=== PATIENT | male | born 1970 | race Caucasian/White ===

== ENCOUNTER 2017-01-19 12:05 | Emergency (ER) | payer SELFPAY ==
[~2017-01-19] VITALS: Ht 167.6 cm; Wt 75.0 kg
[2017-01-19 12:07] VITALS: BP 175/101; PULSE 90; RESP 20; TEMP 99; O2SAT 98
--- NOTE | 2017-01-19 12:21 | PD ---
Physical Exam Time Seen by Provider: 12:20 Narrative Pt presents to the ED for evaluation of mid to lower back pain for 1.5 months. Denies hx of back pain. Denies injury. VSS. Awaiting bed placement. Data Data Last Documented VS Vital Signs Date Time Temp Pulse Resp B/P Pulse Ox O2 Delivery O2 Flow Rate FiO2 01/19/17 12:07 99.0 90 20 175/101 98 Room Air MDM Supervised Visit with [facility] DELIA: Mirna Toro Jan 19, 2017 12:21
[2017-01-19 13:31] VITALS: BP 155/96
[2017-01-19] MEDS ORDERED: ORPHENADRINE INJ 60 MG/2 ML AMP IV ONE (14:00)
[2017-01-19] MEDS ORDERED: KETOROLAC TROMETHAMINE 30 MG/ML (IVP) VIAL IV PUSH ONE (14:00)
[2017-01-19] MEDS ORDERED: DEXAMETHASONE SOD PHOS 20 MG/5 ML VIAL IV PUSH ONE (14:00)
--- NOTE | 2017-01-19 14:03 | PD ---
HPI Chief Complaint: Musculoskeletal Complaint Time Seen by Provider: 14:00 Travel History International Travel<30 days: No Contact w/Intl Traveler<30days: No Traveled to known affect area: No History of Present Illness HPI Patient is a 46-year-old male presenting to emergency department for evaluation of back pain. Patient states that ongoing for over a month, he denies any preceding injury or trauma. His gotten worse over the last 2 days he states the pain is in his lower back and radiates up. He denies any numbness or weakness in his lower extremities, no saddle paresthesia, no bladder or bowel incontinence, he states he does wake up in the morning and feels wet. Patient reports his pain is 8 out of 10, he describes aching and sore. He has been taking BC powder for the pain with no significant relief of symptoms. He denies any IV drug use, he denies any significant past medical history. PFS Past Medical History Medical History: Denies Significant Hx Past Surgical History Genitourinary Surgery: Yes (mallorywise tear repair ) Social History Alcohol Use: Yes Tobacco Use: Yes Substance Use: Yes (marijuana) Allergies-Medications (Allergen,Severity, Reaction): Coded Allergies: Tagamet (Verified Allergy, Unknown, rash, 01/19/17) Zantac (Verified Allergy, Unknown, rash, 01/19/17) Reported Meds & Prescriptions Reported Meds & Active Scripts Active Tramadol (Tramadol HCl) 50 Mg Tab 50 Mg PO Q6H PRN Review of Systems Except as stated in HPI: all other systems reviewed are Neg Musculoskeletal: Positive: Myalgias, Cramping, Pain Neurologic: No: Weakness, Focal Abnormalities, Paresthesia, Sensory Disturbance Physical Exam Narrative GENERAL: Well-developed, well-nourished, alert male. Appears uncomfortable, in no acute distress. SKIN: Focused skin assessment warm/dry. HEAD: Atraumatic. Normocephalic. EYES: Pupils equal and round. No scleral icterus. No injection or drainage. ENT: No nasal bleeding or discharge. Mucous membranes pink and moist. NECK: Trachea midline. No JVD. CARDIOVASCULAR: Regular rate and rhythm. No murmur appreciated. RESPIRATORY: No accessory muscle use. Clear to auscultation. Breath sounds equal bilaterally. GASTROINTESTINAL: Abdomen soft, non-tender, nondistended. Hepatic and splenic margins not palpable. MUSCULOSKELETAL: No obvious deformities. No clubbing. No cyanosis. No edema. Tenderness to palpation paraspinal musculature and lumbar and thoracic region. No spinal tenderness or step-off noted. NEUROLOGICAL: Awake and alert. No obvious cranial nerve deficits. Motor grossly within normal limits. Normal speech. PSYCHIATRIC: Appropriate mood and affect; insight and judgment normal. Data Data Last Documented VS Vital Signs Date Time Temp Pulse Resp B/P Pulse Ox O2 Delivery O2 Flow Rate FiO2 01/19/17 13:31 155/96 01/19/17 12:07 99.0 90 20 98 Room Air Orders Urinalysis - C+S If Indicated (01/19/17 13:55) Iv Access Insert/Monitor (01/19/17 13:55) Ketorolac Inj (Toradol Inj) (01/19/17 14:00) Orphenadrine Inj (Norflex Inj) (01/19/17 14:00) Dexamethasone Inj (Decadron Inj) (01/19/17 14:00) Labs Laboratory Tests Test 01/19/17 14:25 Urine Color YELLOW Urine Turbidity CLEAR Urine pH 5.5 Urine Specific [place] 1.019 Urine Protein TRACE mg/dL Urine Glucose (UA) NEG mg/dL Urine Ketones 10 mg/dL Urine Occult Blood NEG Urine Nitrite NEG Urine Bilirubin NEG Urine Urobilinogen LESS THAN 2.0 MG/DL Urine Leukocyte Esterase NEG Urine RBC LESS THAN 1 /hpf Urine WBC LESS THAN 1 /hpf Urine Squamous Epithelial <1 /hpf Cells Urine Mucus FEW /lpf Microscopic Urinalysis Comment CULT NOT INDICATED MDM Medical Decision Making Medical Screen Exam Complete: Yes Emergency Medical Condition: Yes Interpretation(s) Vital Signs Date Time Temp Pulse Resp B/P Pulse Ox O2 Delivery O2 Flow Rate FiO2 01/19/17 13:31 155/96 01/19/17 12:07 99.0 90 20 175/101 98 Room Air Differential Diagnosis Strain versus spasm versus discogenic pain versus kidney stone versus other Narrative Course Patient is a 46-year-old male presenting to emergency for evaluation of back pain. Pain is been ongoing for over a month, there was no preceding injury or trauma. There are no neurological deficits on exam. Physical examination appears most consistent with musculoskeletal strain. Patient does work as a painter and decorator. Since to attempt to alleviate pain emergency Department, urinalysis ordered to rule out hematuria for possible kidney stone. Urinalysis is unremarkable. Patient stated that pain was not improved after medication administration however he is seen sitting up on the bed which he was not able to do initially. Patient will be discharged home with medications. He was encouraged to take ibuprofen and Flexeril consistently for 24-48 hours and then as needed. He was advised not to drive or operate machinery while taking narcotic pain medication. He was given written information regarding the [facility]. He was encouraged to follow-up with primary care for ongoing health care maintenance. He was encouraged to return to emergency department for any new or worsening symptoms. Patient is stable for discharge. Diagnosis Primary Impression: Strain of lumbar paraspinal muscle Qualified Code: S39.012A - Strain of lumbar paraspinal muscle, initial encounter Additional Impression: Spasm of lumbar paraspinous muscle Referrals: [facility] Primary Care Physician Patient Instructions: General Instructions Additional Instructions: Follow-up with your primary doctor or at the [facility] Take medications as directed, do not drive or operate machinery while taking narcotic pain medication Apply warm moist heat to affected area, continue range of motion exercises, avoid exacerbating activities, avoid bed rest Return to emergency department for any new or worsening symptoms Med/Other Pt SpecificInfo: Prescription(s) given Scripts Cyclobenzaprine (Flexeril)10 Mg Tab10 Mg PO TID PRN (MUSCLE SPASM) 10 Days Ref 0 Prov:Polly Lamb 01/19/17 Ibuprofen 800 Mg Rub392 Mg PO Q6HR PRN (PAIN) #40 TAB Ref 0 Prov:Polly Lamb 01/19/17 Tramadol 50 Mg Tab50 Mg PO Q6H PRN (PAIN) #12 TAB Ref 0 Prov:Karen Martel MD 01/19/17 Disposition: 01 DISCHARGE HOME Condition: Stable Polly Lamb Jan 19, 2017 14:03
[2017-01-19 15:09] LABS: BLOOD, URINE NEG (NEG); COMMENT (UR) CULT NOT INDICATED; CULTURE IF INDICATED CULT NOT INDICATED; GLUCOSE,URINE NEG (NEG); KETONE, URINE 10 mg/dL (NEG); MUCUS URINE FEW /lpf (OCC); NITRITE,URINE NEG (NEG); PH, URINE 5.5 (5.0-8.5); SQUAMOUS EPITHELIAL CELL URINE <1 /hpf (0-5); URINE COLOR YELLOW (YELLW/STRAW)
[2017-01-19] MEDS ORDERED: TRAM50TA PO (15:25)
[2017-01-19] MEDS ORDERED: IBUP800T23 PO (15:27)
[2017-01-19] MEDS ORDERED: CYCL1TAB29 PO (15:27)
== END 2017-01-19 16:06 | disposition home or self-care (01) ==
LOC: NEPD 12:05
DX: S39.012A Strain of muscle, fascia and tendon of lower back, initial encounter (principal); Z72.0 Tobacco use; X58.XXXA Exposure to other specified factors, initial encounter; Y93.9 Activity, unspecified
CPT/HCPCS: 81001; 96374; 96375; 99284; J1100; J1885; J2360

== ENCOUNTER 2017-09-13 18:04 | Observation (INO) | payer SELFPAY ==
[~2017-09-13] VITALS: Ht 167.6 cm; Wt 68.0 kg
[~2017-09-13 18:04] MED LIST: CYCL10TA PO; IBUP1TAB7 PO; TRAM50TA PO
[2017-09-13 18:20] VITALS: BP 160/97; PULSE 108; RESP 16; TEMP 97.8; O2SAT 98
[2017-09-13] MEDS ORDERED: SODIUM CHLOR 0.9% 1000 ML INJ 1,000 ML IV SCH (18:37)
--- NOTE | 2017-09-13 18:41 | PD ---
HPI Chief Complaint: Chest Pain Time Seen by Provider: 18:37 Travel History International Travel<30 days: No Contact w/Intl Traveler<30days: No Traveled to known affect area: No History of Present Illness HPI 47-year-old male alcoholic presents for evaluation of abdominal pain, chest pain. He reports for the past 2 weeks he has had constant pain in his epigastrium/left upper quadrant as well as left-sided chest pain, left arm pain. Pain is sharp, constant, no aggravating or alleviating factors. He reports a history of chronic alcohol use, typically drinks 15 beers a day but today only drinks 6. He reports that prior to arrival he had a syncopal episode. He denies nausea, vomiting, shortness of breath, cough or congestion, diarrhea or constipation, flank pain, dysuria. He is a poor historian. He has no other complaints. [facility] Past Surgical History Genitourinary Surgery: Yes (mallorywise tear repair ) Social History Alcohol Use: Yes Tobacco Use: Yes Substance Use: Yes (marijuana) Allergies-Medications (Allergen,Severity, Reaction): Coded Allergies: cimetidine (Verified Allergy, Unknown, rash, 09/13/17) ranitidine (Verified Allergy, Unknown, rash, 09/13/17) Reported Meds & Prescriptions Reported Meds & Active Scripts Active No Active Prescriptions or Reported Medications Review of Systems ROS Limitations: Intoxication Except as stated in HPI: all other systems reviewed are Neg Physical Exam Narrative GENERAL: Disheveled male in no acute distress SKIN: Warm and dry. HEAD: Atraumatic. Normocephalic. EYES: Pupils equal and round. No scleral icterus. No injection or drainage. ENT: No nasal bleeding or discharge. Mucous membranes pink and moist. NECK: Trachea midline. No JVD. CARDIOVASCULAR: Regular rate and rhythm. No murmur appreciated. RESPIRATORY: No accessory muscle use. Clear to auscultation. Breath sounds equal bilaterally. GASTROINTESTINAL: Abdomen soft, tender to palpation in the epigastrium and left upper quadrant without guarding. MUSCULOSKELETAL: No obvious deformities. No clubbing. No cyanosis. No edema. NEUROLOGICAL: Awake and alert. No obvious cranial nerve deficits. Motor grossly within normal limits. Mildly slurred speech. PSYCHIATRIC: Appropriate mood and affect; insight and judgment normal. Data Data Last Documented VS Vital Signs Date Time Temp Pulse Resp B/P (MAP) Pulse Ox O2 Delivery O2 Flow Rate FiO2 09/13/17 19:25 93 16 95 Room Air 09/13/17 19:24 147/87 (107) 09/13/17 18:20 97.8 Orders Orders Electrocardiogram (09/13/17 18:37) Ckmb (Isoenzyme) Profile (09/13/17 18:37) Complete Blood Count With Diff (09/13/17 18:37) Magnesium (Mg) (09/13/17 18:37) Prothrombin Time / Inr (Pt) (09/13/17 18:37) Act Partial Throm Time (Ptt) (09/13/17 18:37) Troponin I (09/13/17 18:37) Ecg Monitoring (09/13/17 18:37) Bilateral Bp Monitoring (09/13/17 18:37) Iv Access Insert/Monitor (09/13/17 18:37) Oximetry (09/13/17 18:37) Oxygen Administration (09/13/17 18:37) Sodium Chloride 0.9% Flush (Ns Flush) (09/13/17 18:45) Comprehensive Metabolic Panel (09/13/17 18:37) Lipase (09/13/17 18:37) Urinalysis - C+S If Indicated (09/13/17 18:37) Ct Abd/Pel W Iv Contrast(Rout) (09/13/17 18:37) Ondansetron Inj (Zofran Inj) (09/13/17 18:45) Pantoprazole Inj (Protonix Inj) (09/13/17 18:45) Sodium Chlor 0.9% 1000 Ml Inj (Ns 1000 M (09/13/17 18:37) Al-Mag Hy-Si 40-40-4 Mg/Ml Liq (Mag-Al P (09/13/17 18:45) Lidocaine 2% Viscous (Xylocaine 2% Visco (09/13/17 18:45) Alcohol (Ethanol) (09/13/17 18:38) Chest, Single Ap (09/13/17 18:37) CKMB (09/13/17 18:50) CKMB% (09/13/17 18:50) Iohexol 350 Inj (Omnipaque 350 Inj) (09/13/17 20:10) Aspirin Chew (Aspirin Chew) (09/13/17 21:00) Nitroglycerin Sl (Nitrostat Sl) (09/13/17 21:00) Labs Laboratory Tests Test 09/13/17 18:50 09/13/17 18:52 White Blood Count 6.3 TH/MM3 Red Blood Count 4.95 MIL/MM3 Hemoglobin 15.3 GM/DL Hematocrit 45.3 % Mean Corpuscular Volume 91.6 FL Mean Corpuscular Hemoglobin 30.9 PG Mean Corpuscular Hemoglobin Concent 33.7 % Red Cell Distribution Width 12.7 % Platelet Count 212 TH/MM3 Mean Platelet Volume 7.7 FL Neutrophils (%) (Auto) 54.3 % Lymphocytes (%) (Auto) 36.2 % Monocytes (%) (Auto) 7.7 % Eosinophils (%) (Auto) 0.9 % Basophils (%) (Auto) 0.9 % Neutrophils # (Auto) 3.4 TH/MM3 Lymphocytes # (Auto) 2.3 TH/MM3 Monocytes # (Auto) 0.5 TH/MM3 Eosinophils # (Auto) 0.1 TH/MM3 Basophils # (Auto) 0.1 TH/MM3 CBC Comment DIFF FINAL Differential Comment Prothrombin Time 9.9 SEC Prothromb Time International Ratio 1.0 RATIO Activated Partial Thromboplast Time 25.9 SEC Blood Urea Nitrogen 4 MG/DL Creatinine 0.75 MG/DL Random Glucose 88 MG/DL Total Protein 8.2 GM/DL Albumin 3.8 GM/DL Calcium Level 8.6 MG/DL Magnesium Level 2.0 MG/DL Alkaline Phosphatase 62 U/L Aspartate Amino Transf (AST/SGOT) 78 U/L Alanine Aminotransferase (ALT/SGPT) 62 U/L Total Bilirubin 0.3 MG/DL Sodium Level 136 MEQ/L Potassium Level 3.6 MEQ/L Chloride Level 98 MEQ/L Carbon Dioxide Level 28.1 MEQ/L Anion Gap 10 MEQ/L Estimat Glomerular Filtration Rate 111 ML/MIN Total Creatine Kinase 105 U/L Creatine Kinase MB 1.2 NG/ML Troponin I LESS THAN 0.02 NG/ML Lipase 124 U/L Ethyl Alcohol Level 346 MG/DL Urine Color LIGHT-YELLOW Urine Turbidity CLEAR Urine pH 5.5 Urine Specific [place] 1.002 Urine Protein NEG mg/dL Urine Glucose (UA) NEG mg/dL Urine Ketones NEG mg/dL Urine Occult Blood NEG Urine Nitrite NEG Urine Bilirubin NEG Urine Urobilinogen LESS THAN 2.0 MG/DL Urine Leukocyte Esterase NEG Urine RBC LESS THAN 1 /hpf Microscopic Urinalysis Comment CULT NOT INDICATED MDM Medical Decision Making Medical Screen Exam Complete: Yes Emergency Medical Condition: Yes Medical Record Reviewed: Yes Differential Diagnosis Gastritis, pancreatitis, AAA, alcohol intoxication, hyponatremia, acute coronary syndrome, pneumothorax, pericarditis, myocarditis Narrative Course The patient was placed on ecg monitoring and pulse oximetry. A 12-lead EKG was obtained. Chest x-ray, CT abdomen and pelvis were obtained. The patient was given GI cocktail and Protonix with minimal relief in his symptoms. Aspirin and nitroglycerin ordered. CBC is unremarkable. CMP is unremarkable. Cardiac enzymes are negative. Alcohol level is quite elevated at 346. CT abdomen and pelvis reveals no acute abnormalities. Chest x-ray is normal. Etiology of this pain is unknown, could be related to alcohol-induced gastritis. Syncopal event may be related to his alcohol abuse. At this point in time the plan would be to admit the patient overnight for observation. Diagnosis Primary Impression: Alcohol abuse Additional Impressions: Syncope Atypical chest pain Abdominal pain Admitting Information Admitting Physician Requests: Observation Scripts No Active Prescriptions or Reported Meds Frankie Marte Sep 13, 2017 18:41
[2017-09-13] MEDS ORDERED: LIDOCAINE VISCOUS 2% SOLN 15 ML UDC PO ONE (18:45)
[2017-09-13] MEDS ORDERED: ONDANSETRON HCL 4 MG/2 ML VIAL IVP ONE (18:45)
[2017-09-13] MEDS ORDERED: SODIUM CHLORIDE 0.9% FLUSH 10 ML FLUSH IVF PRN (18:45)
[2017-09-13] MEDS ORDERED: PANTOPRAZOLE SODIUM 40 MG VIAL IVP ONE (18:45)
[2017-09-13] MEDS ORDERED: ALUMINUM/MAGNESIUM/SIMETH 30 ML CUP PO ONE (18:45)
[2017-09-13 18:53] VITALS: BP_SYST 147; BP_SYST 168; BP_DIAS 86; BP_DIAS 87; PULSE 94; RESP 17; O2SAT 97
[2017-09-13 18:56] VITALS: RESP 17; O2SAT 97
[2017-09-13 19:12] LABS: AUTOMATED NEUTROPHIL # 3.4 TH/MM3 (1.8-7.7); BASOPHIL # 0.1 TH/MM3 (0-0.2); BASOPHIL % 0.9 % (0.0-2.0); EOSINOPHIL # 0.1 TH/MM3 (0-0.4); EOSINOPHIL % 0.9 % (0.0-4.0); HEMATOCRIT 45.3 % (39.0-51.0); HEMOGLOBIN 15.3 GM/DL (13.0-17.0); LYMPH % 36.2 % (9.0-44.0); LYMPHOCYTE # 2.3 TH/MM3 (1.0-4.8); MEAN CELL VOLUME 91.6 FL (80.0-100.0); MEAN CORPUSCULAR HEMOGLOBIN 30.9 PG (27.0-34.0); MEAN CORPUSCULAR HGB CONC 33.7 % (32.0-36.0); MEAN PLATELET VOLUME 7.7 FL (7.0-11.0); MONO % 7.7 % (0.0-8.0); MONOCYTE # 0.5 TH/MM3 (0-0.9); NEUT % 54.3 % (16.0-70.0); PLATELET COUNT 212 TH/MM3 (150-450); RED BLOOD COUNT 4.95 MIL/MM3 (4.50-5.90); RED CELL DISTRIBUTION WIDTH 12.7 % (11.6-17.2); WHITE BLOOD COUNT 6.3 TH/MM3 (4.0-11.0)
[2017-09-13 19:12] LABS: BILIRUBIN, URINE NEG (NEG); BLOOD, URINE NEG (NEG); GLUCOSE,URINE NEG (NEG); KETONE, URINE NEG (NEG); NITRITE,URINE NEG (NEG); PH, URINE 5.5 (5.0-8.5); URINE COLOR LIGHT-YELLOW (YELLW/STRAW); URINE LEUKOCYTE ESTERASE NEG (NEG)
[2017-09-13 19:22] LABS: PROTHROMBIN TIME - PATIENT 9.9 SEC (9.8-11.6)
[2017-09-13 19:24] VITALS: BP 147/87; PULSE 93; RESP 17; O2SAT 95
[2017-09-13 19:26] LABS: ALBUMIN 3.8 GM/DL (3.4-5.0); AST (GOT) 78 U/L (15-37); BICARBONATE 28.1 MEQ/L (21.0-32.0); BLOOD UREA NITROGEN 4 MG/DL (7-18); CALCIUM 8.6 MG/DL (8.5-10.1); CHLORIDE 98 MEQ/L (98-107); CREATININE 0.75 MG/DL (0.60-1.30); GLOMERULAR FILTRATION RATE 111 ML/MIN (>89); GLUCOSE,RANDOM 88 MG/DL (74-106); SODIUM (NA) 136 MEQ/L (136-145)
[2017-09-13 19:27] LABS: ALT (GPT) 62 U/L (12-78)
--- NOTE | 2017-09-13 19:27 | RADRPT ---
EXAM DATE/TIME: 09/13/2017 19:03 [facility] COMPARISON: No previous studies available for comparison. INDICATIONS : Left sided chest pain. MEDICAL HISTORY : None. SURGICAL HISTORY : ENCOUNTER: Initial ACUITY: 2 days PAIN SCORE: 10/10 LOCATION: Left lower chest FINDINGS: A single view of the chest demonstrates the lungs to be symmetrically aerated without evidence of mas s, infiltrate or effusion. The cardiomediastinal contours are unremarkable. Osseous structures are intact. CONCLUSION: 1. No acute cardiopulmonary disease. Antoine Ramirez MD on September 13, 2017 at 19:26 Board Certified Radiologist. This report was verified electronically.
[2017-09-13 19:31] LABS: ALKALINE PHOSPHATASE 62 U/L (45-117); TOTAL BILIRUBIN ADULT 0.3 MG/DL (0.2-1.0); TOTAL PROTEIN 8.2 GM/DL (6.4-8.2); TROPONIN I LESS THAN 0.02 NG/ML (0.02-0.05)
[2017-09-13] MEDS ORDERED: IOHEXOL 350 MG/ML 10 ML VIAL (for RAD DIAG) IVCONTRAST ONE (20:10)
--- NOTE | 2017-09-13 20:50 | RADRPT ---
EXAM DATE/TIME: 09/13/2017 20:00 [facility] COMPARISON: No previous studies available for comparison. INDICATIONS : Left abdominal pain. IV CONTRAST: 100 cc Omnipaque 350 (iohexol) IV ORAL CONTRAST: No oral contrast ingested. RADIATION DOSE: 13.15 CTDIvol (mGy) MEDICAL HISTORY : None SURGICAL HISTORY : None. ENCOUNTER: Initial ACUITY: 1 day PAIN SCALE: 5/10 LOCATION: Left abdomen TECHNIQUE: Volumetric scanning of the abdomen and pelvis was performed. Using automated exposure control and ad justment of the mA and/or kV according to patient size, radiation dose was kept as low as reasonably achievable to obtain optimal diagnostic quality images. DICOM format image data is available electro nically for review and comparison. FINDINGS: Examination of the lung bases demonstrates no abnormality. No pleural fluid is identified. No pulmona ry nodules are present. There is decreased density of the liver with respect to the spleen compatible with fatty infiltration. The spleen is unremarkable. The gallbladder and pancreas are unremarkable. No intrahepatic or extrahepatic ductal dilatation is seen. The adrenal glands and kidneys appear norm al bilaterally. No hydronephrosis or mass lesions are identified. Examination of the pelvis demonstrates no evidence of free fluid or pelvic mass. No abnormally enlarg ed inguinal or retroperitoneal lymph nodes are present. The bladder is unremarkable. CONCLUSION: 1. No evidence of acute abdominal or pelvic process. No masses are identified. 2. Hypodense liver compatible with fatty infiltration or hepatocellular disease. Antoine Ramirez MD on September 13, 2017 at 20:47 Board Certified Radiologist. This report was verified electronically.
[2017-09-13] MEDS ORDERED: NITROGLYCERIN 0.4 MG SL 25 TABS/BTL SL ONE (21:00)
[2017-09-13] MEDS ORDERED: ASPIRIN 81 MG CHEW TAB PO ONE (21:00)
[2017-09-13] MEDS ORDERED: LORazepam 2 MG TAB PO PRN (21:15)
[2017-09-13] MEDS ORDERED: FLUMAZENIL 0.5 MG/5 ML VIAL IV PUSH PRN (21:15)
[2017-09-13] MEDS ORDERED: MAGNESIUM HYDROXIDE SUSP 30 ML CUP PO PRN (21:15)
[2017-09-13] MEDS ORDERED: NALOXONE HCL 0.4 MG/ML AMP IV PUSH PRN (21:15)
[2017-09-13] MEDS ORDERED: LORazepam 2 MG/ML VIAL IV PUSH PRN ×4 (21:15)
[2017-09-13] MEDS ORDERED: LACTULOSE SYRUP 20 GM/30 ML CUP PO PRN (21:15)
[2017-09-13] MEDS ORDERED: BISACODYL 10 MG SUPP RECTAL PRN (21:15)
[2017-09-13] MEDS ORDERED: LORazepam 1 MG TAB PO PRN (21:15)
[2017-09-13] MEDS ORDERED: SODIUM CHLORIDE 0.9% FLUSH 10 ML FLUSH IV FLUSH PRN (21:15)
[2017-09-13] MEDS ORDERED: ACETAMINOPHEN 325 MG TAB PO PRN (21:15)
[2017-09-13] MEDS ORDERED: ONDANSETRON HCL 4 MG/2 ML VIAL IVP PRN (21:15)
[2017-09-13] MEDS ORDERED: SENNOSIDES 8.6 MG TAB PO PRN (21:15)
[2017-09-13] MEDS: FAMOTIDINE 20 MG TAB PO SCH (21:58)
[2017-09-13 23:27] VITALS: BP 138/104; PULSE 98; RESP 18; TEMP 98.7; O2SAT 96
--- NOTE | 2017-09-13 23:34 | HHI.HP ---
[facility] No Primary Care Physician Admission Diagnosis Alcohol intoxication, syncope, atypical chest pain, abdominal pain Diagnoses: (1) Abdominal pain (2) Atypical chest pain (3) Alcohol abuse Chief Complaint: Left upper quadrant abdominal pain Travel History International Travel<30 Days: No Contact w/Intl Traveler <30 Da: No Traveled to Known Affected Are: No History of Present Illness This is a 47-year-old male patient with a known medical history of alcoholism who presented to the ED with complaints of abdominal pain. Patient states that he has had abdominal pain for the past 2 weeks located in his left upper quadrant and radiates to his left lateral chest area. Patient characterizes the pain as sharp and stabbing in nature, rated a 6 out of 10 on pain scale, is intermittent in nature and worsens with activity. Patient denies any alleviating factors. Patient also states that he did have a near syncopal episode at home, states that his roommate found him passed out in the living room. He does admit to drinking roughly 15 beers a day, but states he was trying to cut down for the past couple weeks and only drink 6 beers today. Patient states she is afraid to quit cold turkey due to being afraid of withdrawals. He does admit that he had a recent upper respiratory infection with associated cough, took [id number] medications and states relief. He denies any recent fevers, chills, nausea, vomiting, diarrhea or dysuria. Review of Systems Constitutional: DENIES: Fatigue, Fever, Chills Eyes: DENIES: Blurred vision, Diplopia Respiratory: DENIES: Cough, Sputum production, Shortness of breath Cardiovascular: DENIES: Chest pain Gastrointestinal: COMPLAINS OF: Abdominal pain, DENIES: Black stools, Bloody stools, Constipation, Diarrhea Neurologic: DENIES: Abnormal gait Psychiatric: DENIES: Anxiety Except as stated in HPI: all other systems reviewed are Neg Past Family Social History Past Medical History Alcohol abuse Past Surgical History Barbara-Barron tear repair Reported Medications Active No Active Prescriptions or Reported Medications Allergies: Coded Allergies: cimetidine (Verified Allergy, Unknown, rash, 09/13/17) ranitidine (Verified Allergy, Unknown, rash, 09/13/17) Active Ordered Medications Current Medications Medications (Trade) Dose Ordered Sig/Selena Route Start Time Stop Time Status Last Admin (NS Flush) 2 ml UNSCH PRN IVF 09/13/17 18:45 09/13/17 18:57 (NS Flush) 2 ml UNSCH PRN IV FLUSH 09/13/17 21:15 (NS Flush) 2 ml BID IV FLUSH 09/14/17 09:00 (Tylenol) 650 mg Q4H PRN PO 09/13/17 21:15 09/13/17 23:23 (Zofran Inj) 4 mg Q6H PRN IVP 09/13/17 21:15 (Narcan Inj) 0.4 mg UNSCH PRN IV PUSH 09/13/17 21:15 (Milk Of Magnesia Liq) 30 ml Q12H PRN PO 09/13/17 21:15 (Senokot) 17.2 mg Q12H PRN PO 09/13/17 21:15 (Dulcolax Supp) 10 mg DAILY PRN RECTAL 09/13/17 21:15 (Lactulose Liq) 30 ml DAILY PRN PO 09/13/17 21:15 (Romazicon Inj) 0.2 mg Q1M PRN IV PUSH 09/13/17 21:15 (Ativan) 1 mg Q4H PRN PO 09/13/17 21:15 (Ativan Inj) 1 mg Q4H PRN IV PUSH 09/13/17 21:15 (Ativan) 2 mg Q2H PRN PO 09/13/17 21:15 (Ativan Inj) 2 mg Q2H PRN IV PUSH 09/13/17 21:15 (Ativan Inj) 2 mg Q1H PRN IV PUSH 09/13/17 21:15 (Ativan Inj) 2 mg Q15M PRN IV PUSH 09/13/17 21:15 (Pepcid) 20 mg BID PO 09/13/17 21:30 Family History Denies any family medical history cardiovascular disease, stroke ordered diabetes. Social History Admits to drinking up to 15 beers daily. Denies any tobacco use. Does admit to frequent marijuana use. Physical Exam Vital Signs Vital Signs Date Time Temp Pulse Resp B/P (MAP) Pulse Ox O2 Delivery O2 Flow Rate FiO2 09/13/17 23:27 98.7 98 18 138/104 (115) 96 09/13/17 22:53 09/13/17 19:25 93 16 95 Room Air 09/13/17 19:24 93 17 147/87 (107) 95 Room Air 09/13/17 18:56 97 Room Air 09/13/17 18:56 17 97 Room Air 09/13/17 18:53 94 17 147/87 (107) 97 Room Air 168/86 (113) 09/13/17 18:35 98 17 97 Room Air 09/13/17 18:20 97.8 108 16 160/97 (118) 98 Physical Exam GENERAL: Well-developed, well-nourished patient in NAD. SKIN: Warm and dry. No rash. HEAD: Normocephalic. Atraumatic. EYES: Pupils equal and round. No scleral icterus. No injection or drainage. ENT: No nasal bleeding or discharge. Mucous membranes pink and moist. NECK: Supple. Trachea midline. CARDIOVASCULAR: Regular rate and rhythm. S1, S2 noted. No murmur appreciated. RESPIRATORY: No accessory muscle use. Clear to auscultation. Breath sounds equal bilaterally. GASTROINTESTINAL: Abdomen soft, left upper quadrant pain to palpation, nondistended. Normoactive bowel sounds x4. MUSCULOSKELETAL: No obvious deformities. Extremities without clubbing, cyanosis , or edema. Bilateral knee abrasions. NEUROLOGICAL: Awake and alert. No obvious cranial nerve deficits. Motor grossly within normal limits. 5/5 muscle strength in bilateral upper and lower extremities. Normal speech. PSYCHIATRIC: Appropriate mood and affect; insight and judgment normal. Laboratory Laboratory Tests Test 09/13/17 18:50 09/13/17 18:52 White Blood Count 6.3 Red Blood Count 4.95 Hemoglobin 15.3 Hematocrit 45.3 Mean Corpuscular Volume 91.6 Mean Corpuscular Hemoglobin 30.9 Mean Corpuscular Hemoglobin Concent 33.7 Red Cell Distribution Width 12.7 Platelet Count 212 Mean Platelet Volume 7.7 Neutrophils (%) (Auto) 54.3 Lymphocytes (%) (Auto) 36.2 Monocytes (%) (Auto) 7.7 Eosinophils (%) (Auto) 0.9 Basophils (%) (Auto) 0.9 Neutrophils # (Auto) 3.4 Lymphocytes # (Auto) 2.3 Monocytes # (Auto) 0.5 Eosinophils # (Auto) 0.1 Basophils # (Auto) 0.1 CBC Comment DIFF FINAL Differential Comment Prothrombin Time 9.9 Prothromb Time International Ratio 1.0 Activated Partial Thromboplast Time 25.9 Blood Urea Nitrogen 4 Creatinine 0.75 Random Glucose 88 Total Protein 8.2 Albumin 3.8 Calcium Level 8.6 Magnesium Level 2.0 Alkaline Phosphatase 62 Aspartate Amino Transf (AST/SGOT) 78 Alanine Aminotransferase (ALT/SGPT) 62 Total Bilirubin 0.3 Sodium Level 136 Potassium Level 3.6 Chloride Level 98 Carbon Dioxide Level 28.1 Anion Gap 10 Estimat Glomerular Filtration Rate 111 Total Creatine Kinase 105 Creatine Kinase MB 1.2 Troponin I LESS THAN 0.02 Lipase 124 Ethyl Alcohol Level 346 Urine Color LIGHT-YELLOW Urine Turbidity CLEAR Urine pH 5.5 Urine Specific [place] 1.002 Urine Protein NEG Urine Glucose (UA) NEG Urine Ketones NEG Urine Occult Blood NEG Urine Nitrite NEG Urine Bilirubin NEG Urine Urobilinogen LESS THAN 2.0 Urine Leukocyte Esterase NEG Urine RBC LESS THAN 1 Microscopic Urinalysis Comment CULT NOT INDICATED Result Diagram: 09/13/17184909/[id number]/[id number] Septic Shock Reassessment Septic shock perfusion: reassessment completed Caprini VTE Risk Assessment Caprini VTE Risk Assessment: No/Low Risk (score <= 1) Caprini Risk Assessment Model Point Value = 1 Point Value = 2 Point Value = 3 Point Value = 5 Age 41-60 Minor surgery BMI > 25 kg/m2 Swollen legs Varicose veins or History of unexplained or recurrent spontaneous Oral contraceptives or hormone replacement Sepsis (< 1 month) Serious lung disease, including pneumonia (< 1 month) Abnormal pulmonary function Acute myocardial infarction Congestive heart failure (< 1 month) History of inflammatory bowel disease Medical patient at bed rest Age 61-74 Arthroscopic surgery Major open surgery (> 45 min) Laparoscopic surgery (> 45 min) Malignancy Confined to bed (> 72 hours) Immobilizing plaster cast Central venous access Age >= 75 History of VTE Family history of VTE Factor V Leiden Prothrombin [id number] Lupus anticoagulant Anticardiolipin antibodies Elevated serum homocysteine Heparin-induced thrombocytopenia Other congenital or acquired thrombophilia Stroke (< 1 month) Elective arthroplasty Hip, pelvis, or leg fracture Acute spinal cord injury (< 1 month) Prophylaxis Regimen Total Risk Factor Score Risk Level Prophylaxis Regimen 0-1 Low Early ambulation 2 Moderate Order ONE of the following: *Sequential Compression Device (SCD) *Heparin 5000 units SQ BID 3-4 Higher Order ONE of the following medications: *Heparin 5000 units SQ TID *Enoxaparin/Lovenox 40 mg SQ daily (WT < 150 kg, CrCl > 30 mL/min) *Enoxaparin/Lovenox 30 mg SQ daily (WT < 150 kg, CrCl > 10-29 mL/min) *Enoxaparin/Lovenox 30 mg SQ BID (WT < 150 kg, CrCl > 30 mL/min) AND/OR *Sequential Compression Device (SCD) 5 or more Highest Order ONE of the following medications: *Heparin 5000 units SQ TID (Preferred with Epidurals) *Enoxaparin/Lovenox 40 mg SQ daily (WT < 150 kg, CrCl > 30 mL/min) *Enoxaparin/Lovenox 30 mg SQ daily (WT < 150 kg, CrCl > 10-29 mL/min) *Enoxaparin/Lovenox 30 mg SQ BID (WT < 150 kg, CrCl > 30 mL/min) AND *Sequential Compression Device (SCD) Assessment and Plan Problem List: (1) Abdominal pain ICD Code: R10.9 - Unspecified abdominal pain Status: Acute (2) Atypical chest pain ICD Code: R07.89 - Other chest pain Status: Acute (3) Alcohol abuse ICD Code: F10.10 - Alcohol abuse, uncomplicated Status: Acute Assessment and Plan This is a 47-year-old male patient with a known medical history of alcoholism who presented to the ED with complaints of abdominal pain. Abdominal pain/left lateral chest pain suspect secondary to alcohol abuse Near syncopal episode suspect secondary to intoxication versus dehydration Chest x-ray reviewed showing no acute cardiopulmonary disease. Abdominal CT reviewed showing no evidence of acute abdominal or pelvic process. No masses. Hypodense liver compatible with fatty infiltration or hepatocellular disease. Ethyl alcohol 346. CBC reviewed, unremarkable. Liver enzymes reviewed, AST mildly elevated. Total bili 0.3. Lipase 124. Troponin less than 0.02. Trend. UA unremarkable. Control pain, Tylenol available as needed. Status post 1 L NS bolus in ED. Was given nitroglycerin sublingual in ED as well as aspirin p.o., chest pain still present, will rule out ACS with serial EKGs and serial troponins. Follow. Most likely musculoskeletal in nature, worsens with activity. Will provide NSAID. Assess response. Was given GI cocktail in ED, some improvement with abdominal pain. EKG reviewed showing sinus rhythm, no ST changes to indicate ischemia, control heart rate. Alcohol abuse: Encouraged cessation. CIWA protocol. Monitor withdrawal. Supportive care. Hypertension: No reports of any history of high blood pressure. Likely secondary to pain. Will monitor trends. May have to start on hypertensive medication. DVT prophylaxis: Ambulation. Pearl Gillette Sep 13, 2017 23:34
[2017-09-14] MEDS ORDERED: KETOROLAC TROMETHAMINE 60 MG/2 ML (IM) VIAL IM ONE
[2017-09-14 01:30] LABS: TROPONIN I LESS THAN 0.02 NG/ML (0.02-0.05)
[2017-09-14 03:39] VITALS: BP 129/76; PULSE 91; RESP 18; TEMP 98.7; O2SAT 90
[2017-09-14 06:30] LABS: TROPONIN I LESS THAN 0.02 NG/ML (0.02-0.05)
[2017-09-14 07:55] VITALS: BP 133/86; PULSE 71; RESP 20; TEMP 98.4; O2SAT 92
[2017-09-14] MEDS: FAMOTIDINE 20 MG TAB PO SCH (08:53)
[2017-09-14] MEDS ORDERED: SODIUM CHLORIDE 0.9% FLUSH 10 ML FLUSH IV FLUSH SCH (09:00)
--- NOTE | 2017-09-14 11:25 | EKG ---
Date Performed: 09/13/2017 Time Performed: 18:20:26 PTAGE: 47 years EKG: Sinus rhythm BORDERLINE RIGHT AXIS DEVIATION NONSPECIFIC ST ELEVATION BORDERLINE ECG INTERPRETATION BASED ON A DE FAULT AGE OF 40 YEARS NO PREVIOUS TRACING DOCTOR: Antoine Arreaga Interpretating Date/Time 09/16/2017 07:02:28
--- NOTE | 2017-09-14 11:33 | HHI.PR ---
Subjective Remarks This is a 47-year-old male patient with a known medical history of alcoholism who presented to the ED with complaints of abdominal pain. Patient states that he has had abdominal pain for the past 2 weeks located in his left upper quadrant and radiates to his left lateral chest area. Patient characterizes the pain as sharp and stabbing in nature, rated a 6 out of 10 on pain scale, is intermittent in nature and worsens with activity. Patient denies any alleviating factors. Patient also states that he did have a near syncopal episode at home, states that his roommate found him passed out in the living room. He does admit to drinking roughly 15 beers a day, but states he was trying to cut down for the past couple weeks and only drink 6 beers today. Patient states she is afraid to quit cold turkey due to being afraid of withdrawals. He does admit that he had a recent upper respiratory infection with associated cough, took [id number] medications and states relief. He denies any recent fevers, chills, nausea, vomiting, diarrhea or dysuria. 2-28 troponins are all negative. Can be discharged to home today. Will recommend that patient take Tums for GI upset since he states that cimetidine and ranitidine don't work for him Recommend that he stop drinking alcohol We will continue on Librium and multivitamin thiamine and folic acid Objective Vitals Vital Signs Date Time Temp Pulse Resp B/P (MAP) Pulse Ox O2 Delivery O2 Flow Rate FiO2 09/14/17 07:55 98.4 71 20 133/86 (102) 92 09/14/17 03:39 98.7 91 18 129/76 (93) 90 09/14/17 00:48 18 09/13/17 23:27 98.7 98 18 138/104 (115) 96 09/13/17 22:53 09/13/17 19:25 93 16 95 Room Air 09/13/17 19:24 93 17 147/87 (107) 95 Room Air 09/13/17 18:56 97 Room Air 09/13/17 18:56 17 97 Room Air 09/13/17 18:53 94 17 147/87 (107) 97 Room Air 168/86 (113) 09/13/17 18:35 98 17 97 Room Air 09/13/17 18:20 97.8 108 16 160/97 (118) 98 I/O 09/13/17 09/13/17 09/13/17 09/14/17 09/14/17 09/14/17 07:00 15:00 23:00 07:00 15:00 23:00 Intake Total 1000 ml 600 ml Balance 1000 ml 600 ml Intake Oral 600 ml IV Total 1000 ml Result Diagram: 09/13/17 1850 09/13/17 1850 Other Results Laboratory Tests Test 09/13/17 18:50 09/13/17 18:52 09/14/17 00:36 09/14/17 05:05 White Blood Count 6.3 TH/MM3 Red Blood Count 4.95 MIL/MM3 Hemoglobin 15.3 GM/DL Hematocrit 45.3 % Mean Corpuscular Volume 91.6 FL Mean Corpuscular Hemoglobin 30.9 PG Mean Corpuscular Hemoglobin Concent 33.7 % Red Cell Distribution Width 12.7 % Platelet Count 212 TH/MM3 Mean Platelet Volume 7.7 FL Neutrophils (%) (Auto) 54.3 % Lymphocytes (%) (Auto) 36.2 % Monocytes (%) (Auto) 7.7 % Eosinophils (%) (Auto) 0.9 % Basophils (%) (Auto) 0.9 % Neutrophils # (Auto) 3.4 TH/MM3 Lymphocytes # (Auto) 2.3 TH/MM3 Monocytes # (Auto) 0.5 TH/MM3 Eosinophils # (Auto) 0.1 TH/MM3 Basophils # (Auto) 0.1 TH/MM3 CBC Comment DIFF FINAL Differential Comment Prothrombin Time 9.9 SEC Prothromb Time International Ratio 1.0 RATIO Activated Partial Thromboplast Time 25.9 SEC Blood Urea Nitrogen 4 MG/DL Creatinine 0.75 MG/DL Random Glucose 88 MG/DL Total Protein 8.2 GM/DL Albumin 3.8 GM/DL Calcium Level 8.6 MG/DL Magnesium Level 2.0 MG/DL Alkaline Phosphatase 62 U/L Aspartate Amino Transf (AST/SGOT) 78 U/L Alanine Aminotransferase (ALT/SGPT) 62 U/L Total Bilirubin 0.3 MG/DL Sodium Level 136 MEQ/L Potassium Level 3.6 MEQ/L Chloride Level 98 MEQ/L Carbon Dioxide Level 28.1 MEQ/L Anion Gap 10 MEQ/L Estimat Glomerular Filtration Rate 111 ML/MIN Total Creatine Kinase 105 U/L 102 U/L 112 U/L Creatine Kinase MB 1.2 NG/ML 0.7 NG/ML 0.9 NG/ML Troponin I LESS THAN 0.02 NG/ML LESS THAN 0.02 NG/ML LESS THAN 0.02 NG/ML Lipase 124 U/L Ethyl Alcohol Level 346 MG/DL Urine Color LIGHT-YELLOW Urine Turbidity CLEAR Urine pH 5.5 Urine Specific [place] 1.002 Urine Protein NEG mg/dL Urine Glucose (UA) NEG mg/dL Urine Ketones NEG mg/dL Urine Occult Blood NEG Urine Nitrite NEG Urine Bilirubin NEG Urine Urobilinogen LESS THAN 2.0 MG/DL Urine Leukocyte Esterase NEG Urine RBC LESS THAN 1 /hpf Microscopic Urinalysis Comment CULT NOT INDICATED Imaging Last Impressions Chest X-Ray [id number]/13/[id number] Signed Impressions: Service Date/Time: Wednesday, September 13, 2017 19:03 - CONCLUSION: 1. No acute cardiopulmonary disease. Antoine Ramirez MD Abdomen/Pelvis CT [id number]/[id number] Signed Impressions: Service Date/Time: Wednesday, September 13, 2017 20:00 - CONCLUSION: 1. No evidence of acute abdominal or pelvic process. No masses are identified. 2. Hypodense liver compatible with fatty infiltration or hepatocellular disease. Antoine Ramirez MD Objective Remarks GENERAL: Awake alert oriented talkative and cooperative appears to be in no acute distress SKIN: Warm and dry. HEAD: Atraumatic. Normocephalic. EYES: Pupils equal and round. No scleral icterus. No injection or drainage. Extraocular muscles intact ENT: No nasal bleeding or discharge. Mucous membranes pink and moist. Tongue is midline NECK: Trachea midline. No JVD. Supple CARDIOVASCULAR: Regular rate and rhythm. S1 and S2 no S3 or S4 RESPIRATORY: No accessory muscle use. Clear to auscultation. Breath sounds equal bilaterally. GASTROINTESTINAL: Abdomen soft, non-tender, nondistended. Hepatic and splenic margins not palpable. MUSCULOSKELETAL: Extremities without clubbing, cyanosis, or edema. No obvious deformities. NEUROLOGICAL: Awake and alert. No obvious cranial nerve deficits. Motor grossly within normal limits. Five out of 5 muscle strength in the arms and legs. Normal speech. PSYCHIATRIC: Appropriate mood and affect; insight and judgment normal. Procedures NONE Medications and IVs Current Medications Sodium Chloride (NS Flush) 2 ml UNSCH PRN IVF FLUSH AFTER USING IV ACCESS Last administered on 09/13/17 18:57; Start 09/13/17 at 18:45 Ondansetron HCl (Zofran Inj) 4 mg ONCE ONCE IVP Last administered on 18:57; Start 09/13/17 at 18:45; Stop 09/13/17 at 18:46; Status DC Pantoprazole Sodium (Protonix Inj) 40 mg ONCE ONCE IVP Last administered on 18:57; Start 09/13/17 at 18:45; Stop 09/13/17 at 18:46; Status DC Sodium Chloride 1,000 ml @ 1,000 mls/hr Q1H IV Last administered on 09/13/17 18:57; Start 09/13/17 at 18:37; Stop 09/13/17 at 19:50; Status DC Al Hydrox/Mg Hydrox/Simethicone (Mag-Al Plus Susp Liq) 30 ml ONCE ONCE PO Last administered on 09/13/17 18:57; Start 09/13/17 at 18:45; Stop 09/13/17 at 18:46; Status DC Lidocaine HCl (Xylocaine 2% Viscous) 15 ml ONCE ONCE PO Last administered on 18:57; Start 09/13/17 at 18:45; Stop 09/13/17 at 18:46; Status DC Iohexol (Omnipaque 350 Inj) 100 ml STK-MED ONCE IVCONTRAST Last administered on 09/13/17at 20:10; Start 09/13/17 at 20:10; Stop 09/13/17 at 20:11; Status DC Aspirin (Aspirin Chew) 324 mg ONCE ONCE PO Last administered on 09/13/17at 21: 08; Start 09/13/17 at 21:00; Stop 09/13/17 at 21:01; Status DC Nitroglycerin (Nitrostat Sl) 0.4 mg ONCE ONCE SL Last administered on at 21:09; Start 09/13/17 at 21:00; Stop 09/13/17 at 21:01; Status DC Sodium Chloride (NS Flush) 2 ml UNSCH PRN IV FLUSH FLUSH AFTER USING IV ACCESS ; Start 09/13/17 at 21:15 Sodium Chloride (NS Flush) 2 ml BID IV FLUSH ; Start 09/14/17 at 09:00 Acetaminophen (Tylenol) 650 mg Q4H PRN PO TEMP > 100.4 Last administered on at 23:23; Start 09/13/17 at 21:15 Ondansetron HCl (Zofran Inj) 4 mg Q6H PRN IVP NAUSEA OR VOMITING; Start at 21:15 Naloxone HCl (Narcan Inj) 0.4 mg UNSCH PRN IV PUSH SEE LABEL COMMENTS; Start at 21:15 Magnesium Hydroxide (Milk Of Magnesia Liq) 30 ml Q12H PRN PO Mild constipation ; Start 09/13/17 at 21:15 Sennosides (Senokot) 17.2 mg Q12H PRN PO Moderate constipation; Start 09/13/17 at 21:15 Bisacodyl (Dulcolax Supp) 10 mg DAILY PRN RECTAL SEVERE CONSITIPATION; Start at 21:15 Lactulose (Lactulose Liq) 30 ml DAILY PRN PO SEVERE CONSITIPATION; Start at 21:15 Flumazenil (Romazicon Inj) 0.2 mg Q1M PRN IV PUSH SEE LABEL COMMENTS; Start at 21:15 Lorazepam (Ativan) 1 mg Q4H PRN PO CIWA 8 - 10; Start 09/13/17 at 21:15 Lorazepam (Ativan Inj) 1 mg Q4H PRN IV PUSH CIWA 8 - 10; Start 09/13/17 at 21: 15 Lorazepam (Ativan) 2 mg Q2H PRN PO CIWA 11-14; Start 09/13/17 at 21:15 Lorazepam (Ativan Inj) 2 mg Q2H PRN IV PUSH CIWA 11-14; Start 09/13/17 at 21:15 Lorazepam (Ativan Inj) 2 mg Q1H PRN IV PUSH CIWA 15-20; Start 09/13/17 at 21:15 Lorazepam (Ativan Inj) 2 mg Q15M PRN IV PUSH CIWA > 20; Start 09/13/17 at 21:15 Famotidine (Pepcid) 20 mg BID PO ; Start 09/13/17 at 21:30 Ketorolac Tromethamine (Toradol Inj) 30 mg ONCE ONCE IM Last administered on at 03:01; Start 09/14/17 at 00:00; Stop 09/14/17 at 00:01; Status DC A/P Problem List: (1) Abdominal pain ICD Code: R10.9 - Unspecified abdominal pain Status: Acute (2) Atypical chest pain ICD Code: R07.89 - Other chest pain Status: Acute (3) Alcohol abuse ICD Code: F10.10 - Alcohol abuse, uncomplicated Status: Acute Assessment and Plan This is a 47-year-old male patient with a known medical history of alcoholism who presented to the ED with complaints of abdominal pain. Abdominal pain/left lateral chest pain suspect secondary to alcohol abuse Near syncopal episode suspect secondary to intoxication versus dehydration Chest x-ray reviewed showing no acute cardiopulmonary disease. Abdominal CT reviewed showing no evidence of acute abdominal or pelvic process. No masses. Hypodense liver compatible with fatty infiltration or hepatocellular disease. Ethyl alcohol 346. CBC reviewed, unremarkable. Liver enzymes reviewed, AST mildly elevated. Total bili 0.3. Lipase 124. Troponin less than 0.02. Trend. UA unremarkable. Control pain, Tylenol available as needed. Status post 1 L NS bolus in ED. Was given nitroglycerin sublingual in ED as well as aspirin p.o., chest pain still present, will rule out ACS with serial EKGs and serial troponins. Follow. Most likely musculoskeletal in nature, worsens with activity. Will provide NSAID. Assess response. Was given GI cocktail in ED, some improvement with abdominal pain. EKG reviewed showing sinus rhythm, no ST changes to indicate ischemia, control heart rate. Alcohol abuse: Encouraged cessation. CIWA protocol. Monitor withdrawal. Supportive care. Hypertension: No reports of any history of high blood pressure. Likely secondary to pain. Will monitor trends. May have to start on hypertensive medication. DVT prophylaxis: Ambulation. Can be discharged to home Placed on Librium multivitamin thiamine folic acid recommend that he take Tums And be discharged to home Recommend stop smoking and drinking Discharge Planning Discharge to home today stop alcohol Rob Tovar DO Sep 14, 2017 11:33
[2017-09-14 11:40] VITALS: BP 156/91; PULSE 76; RESP 18; TEMP 98; O2SAT 92
[2017-09-14] MEDS ORDERED: FOLI800T PO (11:42)
[2017-09-14] MEDS ORDERED: MAAL10003 CHEW (11:42)
[2017-09-14] MEDS ORDERED: TUMS500C CHEW (11:42)
[2017-09-14] MEDS ORDERED: MULTTAB67 PO (11:42)
[2017-09-14] MEDS ORDERED: VITA100T54 PO (11:42)
[2017-09-14] MEDS ORDERED: CHLO25CA9 PO (11:42)
[2017-09-14] MEDS ORDERED: NAPR500 PO (11:44)
--- NOTE | 2017-09-14 11:45 | HHI.DS ---
Discharge Summary Admission Date Sep 13, 2017 at 21:20 Discharge Date: Sep 14, 2017 Admitting Diagnosis Alcohol intoxication, syncope, atypical chest pain, abdominal pain (1) Abdominal pain ICD Code: R10.9 - Unspecified abdominal pain Diagnosis: Principal Status: Acute (2) Atypical chest pain ICD Code: R07.89 - Other chest pain Diagnosis: Secondary Status: Acute (3) Alcohol abuse ICD Code: F10.10 - Alcohol abuse, uncomplicated Diagnosis: Principal Status: Acute Procedures NONE Brief History - From Admission This is a 47-year-old male patient with a known medical history of alcoholism who presented to the ED with complaints of abdominal pain. Patient states that he has had abdominal pain for the past 2 weeks located in his left upper quadrant and radiates to his left lateral chest area. Patient characterizes the pain as sharp and stabbing in nature, rated a 6 out of 10 on pain scale, is intermittent in nature and worsens with activity. Patient denies any alleviating factors. Patient also states that he did have a near syncopal episode at home, states that his roommate found him passed out in the living room. He does admit to drinking roughly 15 beers a day, but states he was trying to cut down for the past couple weeks and only drink 6 beers today. Patient states she is afraid to quit cold turkey due to being afraid of withdrawals. He does admit that he had a recent upper respiratory infection with associated cough, took kuyf-ult-sahdpal medications and states relief. He denies any recent fevers, chills, nausea, vomiting, diarrhea or dysuria. CBC/BMP: 09/13/17 1850 09/13/17 185 Significant Findings Laboratory Tests Test 09/13/17 18:50 09/13/17 18:52 09/14/17 00:36 09/14/17 05:05 Blood Urea Nitrogen 4 MG/DL (7-18) Aspartate Amino Transf (AST/SGOT) 78 U/L (15-37) Troponin I LESS THAN 0.02 NG/ML LESS THAN 0.02 NG/ML LESS THAN 0.02 NG/ML Ethyl Alcohol Level 346 MG/DL (0-5) Imaging Last Impressions Chest X-Ray 09/13/[id number] Signed Impressions: Service Date/Time: Wednesday, September 13, 2017 19:03 - CONCLUSION: 1. No acute cardiopulmonary disease. Antoine Ramirez MD Abdomen/Pelvis CT [id number]/13/[id number] Signed Impressions: Service Date/Time: Wednesday, September 13, 2017 20:00 - CONCLUSION: 1. No evidence of acute abdominal or pelvic process. No masses are identified. 2. Hypodense liver compatible with fatty infiltration or hepatocellular disease. Antoine Ramirez MD PE at Discharge GENERAL: Awake alert oriented talkative and cooperative appears to be in no acute distress SKIN: Warm and dry. HEAD: Atraumatic. Normocephalic. EYES: Pupils equal and round. No scleral icterus. No injection or drainage. Extraocular muscles intact ENT: No nasal bleeding or discharge. Mucous membranes pink and moist. Tongue is midline NECK: Trachea midline. No JVD. Supple CARDIOVASCULAR: Regular rate and rhythm. S1 and S2 no S3 or S4 RESPIRATORY: No accessory muscle use. Clear to auscultation. Breath sounds equal bilaterally. GASTROINTESTINAL: Abdomen soft, non-tender, nondistended. Hepatic and splenic margins not palpable. MUSCULOSKELETAL: Extremities without clubbing, cyanosis, or edema. No obvious deformities. NEUROLOGICAL: Awake and alert. No obvious cranial nerve deficits. Motor grossly within normal limits. Five out of 5 muscle strength in the arms and legs. Normal speech. PSYCHIATRIC: Appropriate mood and affect; insight and judgment normal. Hospital Course This is a 47-year-old male patient with a known medical history of alcoholism who presented to the ED with complaints of abdominal pain. Patient states that he has had abdominal pain for the past 2 weeks located in his left upper quadrant and radiates to his left lateral chest area. Patient characterizes the pain as sharp and stabbing in nature, rated a 6 out of 10 on pain scale, is intermittent in nature and worsens with activity. Patient denies any alleviating factors. Patient also states that he did have a near syncopal episode at home, states that his roommate found him passed out in the living room. He does admit to drinking roughly 15 beers a day, but states he was trying to cut down for the past couple weeks and only drink 6 beers today. Patient states she is afraid to quit cold turkey due to being afraid of withdrawals. He does admit that he had a recent upper respiratory infection with associated cough, took emom-tef-bukmpho medications and states relief. He denies any recent fevers, chills, nausea, vomiting, diarrhea or dysuria. 2-28 troponins are all negative. Can be discharged to home today. Will recommend that patient take Tums for GI upset since he states that cimetidine and ranitidine don't work for him Recommend that he stop drinking alcohol We will continue on Librium and multivitamin thiamine and folic acid Pt Condition on Discharge: Good Discharge Disposition: Discharge Home Discharge Time: <= 30 minutes Discharge Instructions DIET: Follow Instructions for: As Tolerated, No Restrictions, Heart Healthy Diet Speech Therapy-Diet Recommends: Regular Additional Diet Instructions: Stop alcohol Stop smoking Activities you can perform: Regular-No Restrictions Follow up Referrals: PCP Follow-up - 1 Week New Medications: Calcium Carbonate (Antacid) (Tums) 500 Mg Chew 500 MG CHEW Q2HR PRN for HEARTBURN, #300 TAB 0 Refills Calcium Carbonate-Simethicone (Maalox Advanced Maximum Strength) 1,000-60 Mg Chew 1-2 TAB CHEW Q4HR PRN for INDIGESTION OR UPSET STOMACH, #180 TAB 0 Refills Chlordiazepoxide HCl (Chlordiazepoxide HCl) 25 Mg Capsule 1 CAP PO Q6HR for Alcohol Detox, #40 CAP Folic Acid (Folic Acid) 0.8 Mg Tab 800 MCG PO DAILY for Nutritional Supplement for 30 Days, #30 TAB 0 Refills Multiple Vitamin (Multiple Vitamin) 1 Tab 1 TAB PO DAILY for Nutritional Supplement for 30 Days, #30 TAB 0 Refills Naproxen (Naprosyn) 500 Mg Tab 500 MG PO BID for Pain, #60 TAB 0 Refills TAKE WITH FOOD Thiamine (Vitamin B-1) 100 Mg Tab 100 MG PO DAILY for Nutritional Supplement for 30 Days, #30 TAB 0 Refills Rob Tovar DO Sep 14, 2017 11:45
--- NOTE | 2017-09-14 12:23 | EKG ---
Date Performed: 09/14/2017 Time Performed: 00:37:44 PTAGE: 47 years EKG: SINUS TACHYCARDIA INDETERMINATE AXIS LEFT ANTERIOR FASCICULAR BLOCK INFERIOR MYOCARDIAL INF ARCTION ABNORMAL ECG PREVIOUS TRACING : 09/13/2017 18.20 Since the prior tracing, there has been no significant madrigal DOCTOR: Antoine Arreaga Interpretating Date/Time 09/14/2017 12:21:31
--- NOTE | 2017-09-14 12:23 | EKG ---
Date Performed: 09/14/2017 Time Performed: 06:17:53 PTAGE: 47 years EKG: Sinus rhythm INFERIOR MYOCARDIAL INFARCTION ABNORMAL ECG PREVIOUS TRACING : 09/14/2017 00.37 Since the prior tracing, there has been no significant madrigal DOCTOR: Antoine Arreaga Interpretating Date/Time 09/14/2017 12:21:23
== END 2017-09-14 12:51 | disposition home or self-care (01) ==
LOC: NEPE 18:04 → NEDA 21:20 → NEPGCP 22:45
PROVIDERS: ADMIT Hospitalist; ATTEND Hospitalist
DX: R10.12 Left upper quadrant pain (principal); R07.89 Other chest pain; M79.602 Pain in left arm; F10.229 Alcohol dependence with intoxication, unspecified; I44.4 Left anterior fascicular block; R00.0 Tachycardia, unspecified; R94.31 Abnormal electrocardiogram [ECG] [EKG]; S80.212A Abrasion, left knee, initial encounter; S80.211A Abrasion, right knee, initial encounter; I10 Essential (primary) hypertension; K76.0 Fatty (change of) liver, not elsewhere classified; F12.90 Cannabis use, unspecified, uncomplicated; F17.200 Nicotine dependence, unspecified, uncomplicated; X58.XXXA Exposure to other specified factors, initial encounter
CPT/HCPCS: 71045; 74177; 80053; 80307; 81001; 82550; 82552; 83690; 83735; 84484; 85025; 85610; 85730; 93005; 96361; 96372; 96374; 99285; C9113; G0378; J1885; J2405; J7030; Q9967

== ENCOUNTER 2017-09-28 19:35 | Emergency (ER) | payer OTHER ==
[~2017-09-28] VITALS: Ht 167.6 cm; Wt 70.0 kg
[~2017-09-28 19:35] MED LIST changes: +CHLO25CA9 PO; -CYCL10TA PO; +FOLI800T PO; -IBUP1TAB7 PO; +MAAL10003 CHEW; +MULTTAB67 PO; +NAPR500 PO; -TRAM50TA PO; +TUMS500C CHEW; +VITA100T54 PO
[2017-09-28 19:52] VITALS: BP 145/97; PULSE 100; RESP 18; TEMP 98.4; O2SAT 96
[2017-09-28] MEDS ORDERED: ORPHENADRINE INJ 60 MG/2 ML AMP IM ONE (21:15)
[2017-09-28] MEDS ORDERED: KETOROLAC TROMETHAMINE 60 MG/2 ML (IM) VIAL IM ONE (21:15)
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
[2017-09-28] MEDS ORDERED: CYCL5TAB PO (22:00)
[2017-09-28] MEDS ORDERED: TETANUS/DIPHTHERIA TOXOID ADULT 0.5 ML VIAL IM ONE (22:00)
== END 2017-09-28 22:08 | disposition home or self-care (01) ==
LOC: PHEFT 19:35
DX: M79.1 Myalgia (principal); V19.9XXA Pedal cyclist (driver) (passenger) injured in unspecified traffic accident, initial encounter; Z23 Encounter for immunization
CPT/HCPCS: 71045; 73130; 90471; 90714; 96372; 99284; J1885; J2360